=== PATIENT | female | born 1960 ===

== ENCOUNTER → 2016-10-16 06:13 | Day surgery (SDC) | payer OTHER ==
--- NOTE | 2016-10-02 10:07 | HP ---
PREOPERATIVE HISTORY AND PHYSICAL: DATE OF ADMISSION: 10/16/16 PROVIDER: Sedrick Juarez MD CHIEF COMPLAINT: Left foot pain. HISTORY OF PRESENT ILLNESS: Shalonda is a 55-year-old female who has been followed by Dr. Juarez for a left mid foot fracture dislocation. She underwent open reduction internal fixation in November of 2015. She has recovered very well, however, she continues to have some dull aching pain and swelling in the foot. She denies any new injury. She denies paresthesias or numbness. She is interested in surgical intervention for removal of the hardware. PAST MEDICAL HISTORY: None. PAST SURGICAL HISTORY: Left foot open reduction internal fixation as well as a D and C. She reports no complications with the anesthesia with either procedure. CURRENT MEDICATIONS: 1. PreserVision AREDS one tab p.o. b.i.d. 2. Amlodipine besylate 5 mg one p.o. every day. 3. Vitamin D 1000 units one p.o. every day. 4. Ibuprofen 200 mg one tab p.o. q.4 to 6 hours p.r.n. pain. ALLERGIES: No known drug allergies. FAMILY HISTORY: Significant for heart disease, diabetes, and cancer. SOCIAL HISTORY: She lives with her . She works as an senior cost accountant. She has never smoked. She drinks one alcoholic beverage daily and she does like to exercise regularly. REVIEW OF SYSTEMS: General: Negative for recent hospitalizations, fevers, chills, night sweats. Eyes: Negative for blurred or double vision. ENT: Negative for running nose, frequent nosebleed, sore throat, or hearing changes. Cardiovascular: Negative for chest or heart palpitations. Respiratory: Negative for chronic cough or shortness of breath. Gastrointestinal: Negative for nausea, vomiting, diarrhea, or constipation. Genitourinary: Negative for nighttime urination, frequency of urination, urinary tract infections, or kidney stones. Musculoskeletal: Negative for chronic back pain. Positive for history of left foot fracture. Neurologic: Negative for dizziness, lightheadedness, peripheral neuropathy, or weakness. Skin: Negative for rashes or lesions. Endocrine: Negative for weight loss, weight gain, or fatigue. Hematology: Negative for easy bleeding or bruising. Allergic: Negative for seasonal allergies or hay fever. Psychiatric: Negative for depression or anxiety. PHYSICAL EXAMINATION GENERAL: She is a well-developed, well-nourished, pleasant female, in no acute distress at rest. She is alert and oriented x3 with appropriate mood and affect. VITAL SIGNS: The patient is 5 feet 7 inches, 174 pounds, blood pressure 126/80 , pulse is 84, and respirations 16. HEENT: Normocephalic, atraumatic. Hearing and vision are grossly intact. NECK: Trachea is midline. RESPIRATORY: Lungs clear to auscultation bilaterally. No wheezes, rales, or rhonchi. CARDIOVASCULAR: Regular rate and rhythm. No murmurs, rubs, or gallops. Normal S1 and S2. ABDOMEN: Soft, nondistended, nontender. Normal bowel sounds. EXTREMITIES: Exam of the left lower extremity, incisions are well healed over the dorsum of the foot. She continues to have some mild puffiness over the dorsal foot as well. There is no ecchymosis or gross deformities. She is tenderness to palpation over the incisions or dorsal aspect of the mid foot. She has good hindfoot range of motion with 5/5 strength throughout. Her sensation to light touch is intact. She has 2+ dorsalis pedis pulse. IMAGING: AP, lateral, and oblique views of the left foot were obtained in the office and show hardware to be in intact with no change in position from previous exam. The fracture fragments and tarsal bones appear well healed and well aligned. IMPRESSION: Painful hardware of the left foot. PLAN: The patient is to undergo left foot hardware removal by Dr. Juarez on . The risks, benefits, and postoperative course were discussed with the patient and her at length and they would like to proceed. All of their questions were answered to their full satisfaction. A prescription for oxycodone was sent to her pharmacy for postoperative pain. We will follow up with the patient in the postoperative phase. JILLIAN HICKMAN [id number]/[facility] #: [id number] SONI
[~2016-10-16 06:13] MED LIST: Acetaminophen TAB* 325 MG PO PRN; Buffered Lidocaine 1% SYRIN* 3 ML/SYR SYRINGE INTRADERM ONE; Bupivacaine 0.5% SDV PF* 30 ML VIAL ONE; Dexamethasone IV* 4 MG/ML 1 ML (4 MG) ONE; DiMENhydriNATE IV* 50 MG/ML VIAL IV PUSH PRN; Famotidine IV* 10 MG/ML 2 ML (20 mg) ONE; HYDROcodone/ACETAMIN 5-325 MG* 1 TAB PO PRN; HYDROmorphone* 1 MG/ML 1 ML SYR IV PRN; Ketorolac INJ* 30 MG/ML 1 ML VIAL ONE; Lidocaine 2% PF* 10 ML AMP ONE; Lidocaine 2% PF* 5 ML VIAL ONE; Midazolam* 1 MG/ML 2 ML VIAL (2 MG) ONE; Ondansetron INJ* 2 MG/ML VIAL IV PRN; PROCHLORPERAZINE INJ 5 MG/ML 2 ML VIAL IV PRN; Propofol* 10 MG/ML 20 ML BTL IV PUSH ONE; ceFAZolin 2 GM PREMIX(*) 2 GM/50 ML BAG IVPB ONE; fentaNYL* 50 MCG/ML 2 ML VIAL (100 MCG VIAL) ONE; oxyCODONE TAB* 5 MG TAB ONE
[2016-10-16 09:48] VITALS: BP 128/91
--- NOTE | 2016-10-17 11:13 | OP ---
DATE OF OPERATION: 10/16/16 - [facility] DATE OF : 56 ATTENDING SURGEON: Sedrick Juarez MD [employer] DEPART[employer] SUPERVISOR: Demi Howard PA-C ANESTHESIOLOGIST: Dr. Garcia ANESTHESIA: General PRE-OP DIAGNOSIS: Painful hardware, left midfoot fracture. POST-OP DIAGNOSIS: Painful hardware, left midfoot fracture. OPERATIVE PROCEDURE: Removal of hardware, left midfoot, with 2 incisions. DESCRIPTION OF PROCEDURE: The patient was taken to the operating room where a dorsal medial incision was opened to allow visualization of the two small fragment screws over the cuneiform. These were removed sequentially. The lateral midfoot incision was opened 4 cm in length to allow visualization of the cuboid plate which was spanning the second and third metatarsal fractures. These four screws were removed as well as the plate and then we irrigated both medial and lateral wounds, closing with Vicryl and skin sutures and a compression dressing applied. [id number] #: [id number] MTDD
== END | disposition home or self-care (01) ==
LOC: OR 06:13
PROVIDERS: ATTEND Orthopaedic Surgery
DX: T84.84XA Pain due to internal orthopedic prosthetic devices, implants and grafts, initial encounter (principal); Y79.3 Surgical instruments, materials and orthopedic devices (including sutures) associated with adverse incidents; Y92.9 Unspecified place or not applicable; I10 Essential (primary) hypertension
CPT/HCPCS: 88300; A9270-GY; J0690; J1100; J1885; J2001; J2250; J2704; J3010